=== PATIENT | male | born 1980 | race Hispanic/Latino ===

== ENCOUNTER 2018-06-18 15:26 | Emergency (ER) | payer OTHER ==
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
[2018-06-18] MEDS ORDERED: NORCO 7.5/325 PO ONE (18:06)
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
[2018-06-18 19:54] VITALS: BP 121/84
[2018-06-18] MEDS ORDERED: KEPPRA 1,000 MG/NS 0.75% 100ML 1,000 MG/100 ML BAG IV ONE (19:55)
== END 2018-06-18 21:50 | disposition other institution (70) ==
LOC: ED 15:26
DX: S02.2XXA Fracture of nasal bones, initial encounter for closed fracture (principal); S06.6X0A Traumatic subarachnoid hemorrhage without loss of consciousness, initial encounter; I10 Essential (primary) hypertension; Y04.0XXA Assault by unarmed brawl or fight, initial encounter; Y93.89 Activity, other specified; Y92.89 Other specified places as the place of occurrence of the external cause; Y99.8 Other external cause status
CPT/HCPCS: 70450; 70486; 96365; 99285; J1953